=== PATIENT | female | born 1965 ===

== ENCOUNTER → 2018-08-14 21:17 | Outpatient (REF) | payer OTHER, MEDICAID, SELFPAY ==
[2018-08-17 15:31] LABS: Progesterone 3.2 ng/mL
[2018-08-18 21:54] LABS: Estriol,Serum <0.10 ng/mL; Estrone 11 pg/mL
== END ==
LOC: LAB 21:17
PROVIDERS: Visit Provider Acupuncturist
DX: N95.1 Menopausal and female climacteric states (principal); Z79.890 Hormone replacement therapy
CPT/HCPCS: 36415; 82627; 82671; 84144